=== PATIENT | male | born 1955 | race Caucasian/White ===

== ENCOUNTER → 2020-09-05 09:43 | Outpatient (CLI) | payer MEDICARE, OTHER, SELFPAY ==
--- NOTE | 2020-09-05 09:49 | DI.RAD.S_ITS ---
PROCEDURE: XR LUMBAR SPINE MIN 4V INDICATIONS: Lumbar radiculopathy TECHNIQUE: 5 views of the lumbar spine were acquired, including bilateral oblique views. COMPARISON: None. FINDINGS: Bones: 5 nonrib-bearing vertebrae are present. Minimal 2-3 mm retrolisthesis noted at T12-L1, L1-L2 and-L3. No vertebral body compression fractures. No suspicious bony lesions. Mild to moderate disc space narrowing and anterior osteophytes noted throughout the exam. Hypertrophic facet joints particularly present lower lumbar spine. Orthopedic fixation screw is associated with the left 10th lateral rib Soft tissues: Overlying bowel gas pattern is normal. No suspicious soft tissue calcifications. Moderate fecal debris noted throughout the colon. Oblique images: No pars defects. IMPRESSION: 1. Multilevel degenerative disc disease and arthropathy, particularly in the lower lumbar spine. 2. Moderate fecal debris throughout the colon Dictated by: Benito Stack M.D. on 09/05/2020 at 9:28 Approved by: Benito Stack M.D. on 09/05/2020 at 9:32
== END ==
PROVIDERS: PCP Family Medicine; Referring Provider Physical Medicine & Rehabilitation; Visit Provider Physical Medicine & Rehabilitation
DX: M51.16 Intervertebral disc disorders with radiculopathy, lumbar region (principal); M47.26 Other spondylosis with radiculopathy, lumbar region
CPT/HCPCS: 72110

== ENCOUNTER → 2020-11-19 08:53 | Outpatient (CLI) | payer MEDICARE, OTHER, SELFPAY ==
--- NOTE | 2020-11-19 08:55 | DI.MRI.S_ITS ---
PROCEDURE: MR LUMBAR SPINE WO CON INDICATIONS: Low back pain with right-sided radiculopathy TECHNIQUE: Noncontrast sagittal T1 spin echo and T2 fast echo, sagittal STIR, axial T1 and T2 fast spin echo through the lumbar spine. In cases with scoliosis, additional coronal T2 fast spin echo may be performed. COMPARISON: None. FINDINGS: Image quality: Excellent. Alignment and Curvature: There is normal bony alignment. Bone Marrow: Small vertebral hemangiomas noted scattered throughout the lumbar spine, particularly prominent at L5 measuring 2.2 cm. Degenerative endplate changes noted at L1-2 Spinal Cord: Conus medullaris terminates at the L1 level. Visualized cord demonstrates normal signal and size. Paraspinous Soft Tissues: No paravertebral masses. T12-L1: Normal appearance. L1-L2: Disc space narrowing, circumferential disc bulge and anterior osteophyte results in mild central stenosis. Hypertrophic facet joints result in moderate bilateral foraminal stenosis. L2-L3: Mild disc space narrowing and circumferential disc bulge combined with hypertrophic facet joints to result in effacement of both lateral recesses without significant central stenosis. Severe bilateral foraminal stenosis present. L3-L4: Mild disc space narrowing and circumferential disc bulge combines with hypertrophic facet joints to be result in effacement of both lateral recesses without significant central stenosis. There is severe bilateral foraminal stenosis present. L4-L5: Mild disc space narrowing and circumferential disc bulge combines with hypertrophic facet joints to result in effacement of both lateral recesses. No central stenosis, but severe bilateral foraminal stenosis present. L5-S1: Moderate disc space narrowing and circumferential disc bulge present without central stenosis. There is a high-intensity zone in the posterior annulus reflecting annular fissure or tear. Moderate right and severe left foraminal stenosis present. IMPRESSION: 1. Multilevel degenerative disc disease and arthropathy resulting in predominantly foraminal stenosis including severe bilateral foraminal stenosis at L2-3, L3-4 and L4-5 Approved by: Benito Stack M.D. on 11/19/2020 at 11:29
== END ==
PROVIDERS: PCP Family Medicine; Referring Provider Physical Medicine & Rehabilitation; Visit Provider Physical Medicine & Rehabilitation
DX: M51.16 Intervertebral disc disorders with radiculopathy, lumbar region (principal); M51.17 Intervertebral disc disorders with radiculopathy, lumbosacral region; M47.26 Other spondylosis with radiculopathy, lumbar region; M47.27 Other spondylosis with radiculopathy, lumbosacral region; M48.061 Spinal stenosis, lumbar region without neurogenic claudication; M48.07 Spinal stenosis, lumbosacral region
CPT/HCPCS: 72148

== ENCOUNTER → 2020-11-24 10:01 | Outpatient (CLI) | payer MEDICARE, OTHER, SELFPAY ==
[2020-11-24 12:04] LABS: COVID19 -Nasal RAPID Negative (Negative)
== END ==
PROVIDERS: PCP Family Medicine; Visit Provider Nurse Practitioner Family
DX: Z01.812 Encounter for preprocedural laboratory examination (principal); Z20.822 Contact with and (suspected) exposure to COVID-19
CPT/HCPCS: 87635; C9803

== ENCOUNTER 2020-11-25 10:22 | Outpatient (CLI) | payer MEDICARE, OTHER, SELFPAY ==
[2020-11-25] VITALS (8 sets, daily range): BP systolic 121–151; BP diastolic 71–86; PULSE 42–51; RESP 13–30; TEMP 36.6; O2SAT 97–100
--- NOTE | 2020-11-25 10:28 | DI.RAD.S_ITS ---
PROCEDURE: PAIN L/S TRANSFORAMINAL INJECT INDICATIONS: SPONDYLOSIS COMPARISON: [facility], MR, MR LUMBAR SPINE WO CON, 11/19/2020, 9:26. FINDINGS: Fluoroscopic spot filming was performed to verify placement of a spinal needle at the L3-L4 level, as labeled on the films. Appropriate location of the needle tip was confirmed by injection of iodinated contrast. IMPRESSION: Intraprocedural examination within normal limits. Dictated by: Dionisio Quintana M.D. on 11/25/2020 at 13:46 Approved by: Dionisio Quintana M.D. on 11/25/2020 at 13:47
[2020-11-25] MEDS: MIDAZOLAM 5 MG/5 ML VIAL IV (11:53)
[2020-11-25] MEDS: BETAMETHASONE 30 MG/5 ML MDV 6 MG INJ (11:57)
[2020-11-25] MEDS: BUPIVACAINE 0.25% (PF) VIAL 2 ML INJ (11:57)
[2020-11-25] MEDS: DEXAMETHASONE 10 MG/ML VIAL 20 MG INJ (11:57)
[2020-11-25] MEDS: IOPAMIDOL 15 ML VIAL 3 ML INJ (11:57)
--- NOTE | 2020-11-25 12:05 | P.PCN_ITS ---
Date/Time/Diagnoses Date of procedure: 11/25/20 Time of procedure: 12:05 Pre-procedure diagnosis: 1. FORAMINAL STENOSIS WITH LE SYMPTOMS Post-procedure diagnosis: same Procedure Notes Procedure: 1. FLUOROSCOPICALLY GUIDED CONTRAST CONTROLLED TRANSFORAMINAL EPIDURAL STEROID INJECTION - RIGHT L3/4 TFESI Indications: Carter is referred by Dr. Mccrary for treatment of Foraminal Stenosis with right LE Symptoms Physician: Yury Shields Total Fluoroscopy time (seconds): 4 Total sedation minutes: 8 Complications: none Procedure in detail & Post-procedure care: FINDINGS Foraminal Nerve Root Compression secondary to disc disease and facet hypertrophy DESCRIPTION OF PROCEDURE Following review of allergy and review of potential side effects and complications, including, but not necessarily limited to, infection, allergic reaction, local tissue breakdown, stroke, temporary or permanent nerve injury, paralysis, and possible , the patient indicated that the patient understood and agreed to proceed. An informed consent document was signed by the patient, witnessed by a nurse, and placed in the patient's chart. Additionally, other treatment options including medications, modalities, and physical therapy were reviewed with the patient. After review of previous anaesthesic history and IV conscious sedation the patient was deemed safe to proceed with today?s procedure with IV conscious sedation as ASA class II designation. Safety time-out was performed to confirm patient ID, procedure to be performed and site of procedure. IV sedation was accomplished with a combination of 2mg of Versed was administered by the RN after DO order, titrated to patient comfort during the course of the procedure while the patient remained responsive to all verbal commands In the prone position following sterile prep and drape of the lumbar region, the right L3/4 posterior neuroforamen was identified fluoroscopically. The skin was anesthetized via a 25-gauge 1.5-inch needle with 1% lidocaine solution. At this point, a 25-gauge 3.5-inch spinal needle was atraumatically introduced and advanced under fluoroscopic guidance through the posterior right L3/4 neuroforamen to approximately the anterior aspect of the canal. Depth was confirmed on lateral view. Following negative aspiration, injection of approximately 1.5 cc of Isovue 200 under live fluoroscopy in the AP view confirm ed excellent flow along the nerve root, into the epidural space without vascular or intrathecal uptake observed Radiological data, including multiple fluoroscopic views of the lumbosacral spine, reveal a spinal needle at the right L3/4 posterior neuroforamen. Subsequent views show flow of contrast material flowing superiorly and inferiorly along the nerve root confirming epidural flow. Subsequently, a test dose of 1.5 cc of 1% lidocaine solution was administered and patient was observed for two minutes for signs or symptoms of complications, including abdominal pain, shortness of breath, bilateral upper or lower extremity weakness, nausea and vomiting, prior to steroid injection. At this point, a total of 3cc or 20mg of dexamethasone and 6mg of betamethasone was injected without incident. The patient tolerated the procedure well without signs or symptoms of complications prior to transfer to the recovery area continued monitoring without incident. The patient was then transferred to the recovery area where they were observed for an appropriate time after the injection. The patient reported a VAS score of 7 prior to the procedure and a post-procedure VAS of 0. POST OP INSTRUCTIONS The patient was provided a Pain Log to continue to record their response to the target-specific procedure prior to follow-up visit with their referring physic mary jane. Additionally, specific post-injection care instructions and a contact number to our office were provided if concerns arise regarding possible complications associated with the procedure are suspected.
== END 2020-11-25 12:27 | disposition home or self-care (01) ==
LOC: RAD 10:28
PROVIDERS: PCP Family Medicine; Referring Provider Physical Medicine & Rehabilitation; Visit Provider Physical Medicine & Rehabilitation
DX: M48.061 Spinal stenosis, lumbar region without neurogenic claudication (principal); M51.16 Intervertebral disc disorders with radiculopathy, lumbar region
CPT/HCPCS: 64483; J0702; J1100; J2250; J3010

== ENCOUNTER → 2021-03-31 10:23 | Outpatient (CLI) | payer MEDICARE, OTHER, SELFPAY ==
[2021-03-31 11:51] LABS: COVID19 -Nasal RAPID Negative (Negative)
== END ==
PROVIDERS: PCP Family Medicine; Referring Provider Physical Medicine & Rehabilitation; Visit Provider Physical Medicine & Rehabilitation
DX: Z20.822 Contact with and (suspected) exposure to COVID-19 (principal)
CPT/HCPCS: 87635; C9803

== ENCOUNTER 2021-04-02 15:10 | Outpatient (CLI) | payer MEDICARE, OTHER, SELFPAY ==
[2021-04-02] VITALS (8 sets, daily range): BP systolic 123–158; BP diastolic 74–98; PULSE 53–67; RESP 16–25; TEMP 36.8; O2SAT 95–100
--- NOTE | 2021-04-02 15:12 | DI.RAD.S_ITS ---
PROCEDURE: PAIN L INTERLAMINAR/CAUDAL INJ INDICATIONS: SPONDYLOSIS COMPARISON: None. FINDINGS: Fluoroscopic spot filming was performed to verify placement of spinal needles at the lower lobe level(s), as labeled on the films. Appropriate location(s) of the needle tip(s) was confirmed by injection of iodinated contrast. IMPRESSION: Needle placement as above. Dictated by: Wilman Mckeon M.D. on 04/02/2021 at 16:15 Approved by: Wilman Mckeon M.D. on 04/02/2021 at 16:30
[2021-04-02] MEDS: MIDAZOLAM 5 MG/5 ML VIAL IV (15:43)
[2021-04-02] MEDS: fentaNYL 100 MCG/2 ML INJ 50 MCG IV (15:43)
[2021-04-02] MEDS: BUPIVACAINE 0.25% (PF) VIAL 2 ML INJ (15:48)
[2021-04-02] MEDS: IOPAMIDOL 15 ML VIAL 3 ML INJ (15:48)
[2021-04-02] MEDS: BETAMETHASONE 30 MG/5 ML MDV 6 MG INJ (15:49)
[2021-04-02] MEDS: DEXAMETHASONE 10 MG/ML VIAL 20 MG INJ (15:49)
--- NOTE | 2021-04-02 15:56 | P.PCN_ITS ---
Date/Time/Diagnoses Date of procedure: 04/02/21 Time of procedure: 15:56 Pre-procedure diagnosis: 1. HNP WITH RADICULAR FEATURES, 2. MULTILEVEL CENTRAL STENOSIS, Post-procedure diagnosis: same Procedure Notes Procedure: 1. FLUOROSCOPICALLY GUIDED CONTRAST CONTROLLED INTERLAMINAR EPIDURAL STEROID INJECTION -L4/5 Indications: Carter is referred by Dr. Mccrary for treatment of Bilateral Foraminal Stenosis R>L LE symptoms. Physician: Yury Shields Total Fluoroscopy time (seconds): 6 Total sedation minutes: 8 Complications: none Procedure in detail & Post-procedure care: FINDINGS Multilevel Central Spinal Stenosis with Nerve Root Compression DESCRIPTION OF PROCEDURE Fluoroscopically guided, contrast-controlled L4/5 translaminar epidural steroid injection. Following review of allergy and review of potential side effects and complications, including, but not necessarily limited to, infection, allergic reaction, local tissue breakdown, temporary as well as permanent nerve injury, paralysis, stroke and possible , the patient indicated that the patient understood and agreed to proceed. An informed consent document was signed by the patient, witnessed by a nurse, and placed in the patient's chart. Additionally, other treatment options including modalities, medications, and physical therapy were reviewed with the patient. After review of previous anaesthesic history and IV conscious sedation the patient was deemed safe to proceed with today?s procedure with IV conscious sedation as ASA class II designation. Safety time-out was performed to confirm patient ID, procedure to be performed and site of procedure. IV sedation was accomplished with a combination of 2mg of Versed and 50mcg of Fentanyl was administered by the RN after DO order, titrated to patient comfort during the course of the procedure while the patient remained responsive to all verbal commands In the prone position, following sterile prep and drape of the lumbar region, the L4/5 translaminar space was identified fluoroscopically. The skin was anesthetized via a 25-gauge, 1.5inch needle with 1% lidocaine solution. At this point, a 22-gauge short bevel spinal needle was atraumatically introduced and advanced under fluoroscopic guidance into the region of the L4/5 translaminar space. Depth was confirmed on lateral view. Radiological data, including multiple fluoroscopic views of the lumbar spine, reveal a spinal needle at the L4/5 translaminar space. Lateral views then show placement of the needle in the epidural space. Subsequent views show contrast material flowing superiorly and inferiorly in the epidural space. No vascular or intrathecal uptake is observed. At this point, using loss of resistance technique with saline and air, the epidural space was entered. This was confirmed following negative aspiration with injection of approximately 1.5cc of Isovue 200, showing excellent epidural flow without vascular or intrathecal uptake. At this point, 1cc of 1% lidocaine solution combined with 3cc or 20mg of dexamethasone and 6mg betamethasone was injected without incident. The patient tolerated the procedure well without signs or symptoms of complic ations prior to transfer to the recovery area continued monitoring without incident. The patient was then transferred to the recovery area where they were observed for an appropriate period of time after the injection. The patient reported a VAS score of 6 prior to the procedure and a post- procedure VAS of 0. POST OP INSTRUCTIONS The patient was provided a Pain Log to continue to record their response to the target-specific procedure prior to follow-up visit with their referring physician. Additionally, specific post-injection care instructions and a contact number to our office were provided if concerns arise regarding possible complications associated with the procedure are suspected.
== END 2021-04-02 16:15 | disposition home or self-care (01) ==
PROVIDERS: PCP Family Medicine; Referring Provider Physical Medicine & Rehabilitation; Visit Provider Physical Medicine & Rehabilitation
DX: M51.16 Intervertebral disc disorders with radiculopathy, lumbar region (principal); M48.061 Spinal stenosis, lumbar region without neurogenic claudication
CPT/HCPCS: 62323; J0702; J1100; J2250; J3010

== ENCOUNTER → 2024-02-14 13:39 | Outpatient (CLI) | payer MEDICARE, OTHER, SELFPAY ==
--- NOTE | 2024-02-14 13:42 | DI.ECHO.S_ITS ---
[facility] : : [address] : : [place] : : [id number] : : Phone: [phone] Echocardiogram Report + + :Name: KRISTEN ERWIN Study Date: 02/14/2024 Height: 72 in : :[facility] ReadingLocation: Weight: 181 lb : : Gender: Male BSA: 2.0 m2 : :: 1955 Age: 68 yrs BP: 153/95 mmHg: :Reason For Study: TACHYCARDIA INDUCED CARDIOMYOPATHY : :Ordering Physician: CHIDI SHOEMAKER Performed By: Nicole Ferrera : :Referring: CHIDI SHOEMAKER : + + Interpretation Summary 1. Borderline LV contractility. EF of 50-55%. No WMA. No LVH. Normal diastolic function. 2. Normal RV contractility. 3. ROM. Mild RVE 4. Mild MR/PI. 5. No obvious intracardiac shunts. 6. No obvious intracardiac masses/thrombi. 7. No hemodynamically significant pericardial effusion present. 8. Low right sided filling pressures. Conclusion: Low normal LV systolic function with mild valvular insufficiencies. Procedure: A two-dimensional transthoracic echocardiogram with color flow and Doppler was performed. The study quality was technically adequate. There is no prior echocardiogram noted for this patient. The patient was in sinus bradycardia with heart rates between 43-58 bpm during the exam. Left Ventricle: The left ventricle is normal in size and wall thickness. The ejection fraction is estimated to be 50-55%. Right Ventricle: The right ventricle is mildly dilated. The right ventricular systolic function is normal. Atria: The left atrium is moderately dilated. The right atrium is moderately dilated. There is no Doppler evidence for an interatrial shunt. Mitral Valve: The mitral valve is normal in structure and function. There is mild mitral regurgitation. Aortic Valve: The aortic valve is trileaflet. The aortic valve opens well. There is no aortic valve stenosis. No aortic regurgitation is present. Tricuspid Valve: The tricuspid valve is normal in structure and function. There is trace tricuspid regurgitation. The right ventricular systolic pressure is estimated to be at least 22 mmHg based on an estimated right atrial pressure of 3 mm Hg. Pulmonic Valve: The pulmonic valve leaflets are thin and pliable; valve motion is normal. There is mild pulmonic regurgitation. Great Vessels: The aortic root is normal size. The dimensions of the ascending aorta are normal. The IVC is of normal diameter and collapses greater than 50% with a sniff. This suggests a low right atrial pressure of 3 mm Hg. Pericardium/ Pleura There is no pericardial effusion. There is no pleural effusion. MMode/2D Measurements & Calculations LVIDd: 5.9 cm LVOT diam: 2.3 cm LVIDs: 3.7 cm Ao root diam: 3.8 cm FS: 36.6 % asc Aorta Diam: 3.3 cm EPSS: 0.64 cm Ao Arch Diam (Prox Trans): 3.0 cm IVSd: 0.83 cm LVPWd: 0.78 cm LV amador. diameter/BSA (cm/m^2): 2.9 LV sys. diameter/BSA (cm/m^2): 1.8 LA A2 area: 25.6 cm2 RA long axis: 5.8 cm LA A4 area: 26.3 cm2 RA area: 25.3 cm2 LA length (vol): 6.2 cm RA vol: 94.2 ml LA vol: 92.2 ml RA : 46.1 ml/m2 LA vol index: 45.2 ml/m2 IVC diam: 2.0 cm RVD1 (basal): 4.5 cm RVD2 (mid): 3.4 cm TAPSE: 2.4 cm Doppler Measurements & Calculations Ao V2 max: 113.8 cm/sec LVOT Max Ortega: 82.8 cm/sec Ao V2 mean: 77.4 cm/sec LV V1 max P.7 mmHg Ao max P.2 mmHg LV V1 VTI: 20.7 cm Ao mean P.7 mmHg GEORGINA(I,D): 3.2 cm2 Ao V2 VTI: 26.8 cm GEORGINA(V,D): 3.1 cm2 sev ratio: 0.77 GEORGINA indexed to BSA (cm^2/m^2): 1.6 MV E max ortega: 47.2 cm/sec TR max ortega: 218.2 cm/sec MV A max ortega: 52.6 cm/sec TR max P.0 mmHg MV E/A: 0.90 PA V2 max: 91.6 cm/sec Med Peak E' Ortega: 7.5 cm/sec PA V2 mean: 69.3 cm/sec E/E' med: 6.3 PA mean P.1 mmHg Lat Peak E' Ortega: 12.0 cm/sec PA pr(Accel): 7.1 mmHg E/E' lat: 3.9 E/e' average: 5.1 MV dec time: 0.24 sec SV(LVOT): 87.0 ml Reading Physician:
--- NOTE | 2024-02-14 13:43 | DI.NM.S_ITS ---
PROCEDURE: NM EXERCISE TREADMILL NON NUC COMPARISON: None INDICATIONS: TACHYCARDIA INDUCED CARDIOMOPATHY,AFIB FLUTTER FINDINGS: Rest ECG sinus bradycardia 49 bpm. Kalpesh protocol 9:07, maximum heart rate 108 bpm (72% peak predicted), peak blood pressure 180/90, 10.1 METS, TATUM -27%. Exercise ECG sinus tachycardia, no ST segment changes or arrhythmia. The patient did not complain of exercise-induced chest pain however was noted to have severe dyspnea. IMPRESSION: Study uninterpretable for ischemia due to inability to achieve target heart rate (patient took diltiazem the night before and amiodarone the morning of the test) and chronotropic competence. Normal blood pressure response. Good exercise capacity. Dictated by: Bridget Riggs D.O. on 02/14/2024 at 17:14 Approved by: Bridget Riggs D.O. on 02/14/2024 at 17:19
== END ==
LOC: ECHO 13:42
PROVIDERS: PCP Nurse Practitioner Family; Referring Provider Internal Medicine; Visit Provider Internal Medicine
DX: I34.0 Nonrheumatic mitral (valve) insufficiency (principal); I37.1 Nonrheumatic pulmonary valve insufficiency; I48.3 Typical atrial flutter; I43 Cardiomyopathy in diseases classified elsewhere; R00.0 Tachycardia, unspecified
CPT/HCPCS: 93017; 93306

== ENCOUNTER → 2024-04-30 09:50 | Outpatient (CLI) | payer MEDICARE, OTHER, SELFPAY ==
[2024-04-30 11:06] LABS: Add Manual Diff / Slide Review NO; Basophils Absolute Auto 0 /uL (0-100); Basophils Percent Auto 0.4 % (0-2); Eosinophils Absolute Auto 0 /uL (0-450); Eosinophils Percent Auto 0.9 % (2-4); Hematocrit 45.3 % (41-53); Hemoglobin 15.1 g/dL (13.5-17.5); Lymphocytes Absolute Auto 900 /uL (1100-4500); Lymphocytes Percent Auto 16.7 % (25-40); Mean Corpuscular HGB Conc 33.4 % (30-36); Mean Corpuscular Hemoglobin 30.3 PG (26-34); Mean Corpuscular Volume 90.7 fL (80-100); Monocytes Absolute Auto 500 /uL (0-900); Monocytes Percent Auto 9.4 % (3-14); Neutrophils Absolute Auto 3900 /uL (1500-7000); Neutrophils Percent Auto 72.6 % (50-75); Platelet Count 225 X10^3/uL (150-400); Red Blood Cell Count 4.99 X10^6/uL (4.5-5.9); Red Cell Distribution Width 14.8 % (11.6-14.8); White Blood Cell Count 5.3 X10^3/uL (4.5-11.0)
[2024-04-30 11:12] LABS: BUN Creatinine Ratio 19.1 (6-22); Blood Urea Nitrogen 22 mg/dL (9-20); Calcium 8.9 mg/dL (8.4-10.2); Carbon Dioxide 27 mmol/L (22-32); Chloride 104 mmol/L (98-107); Estimated Glomerular Filt Rate > 60 mL/min (>60); Glucose 97 mg/dL (80-110); HEMOLYSIS < 15 (0-50); Potassium 4.8 mmol/L (3.4-5.1); Sodium 137 mmol/L (137-145)
== END ==
PROVIDERS: PCP Nurse Practitioner Family; Referring Provider Internal Medicine; Visit Provider Internal Medicine
DX: I48.91 Unspecified atrial fibrillation (principal)
CPT/HCPCS: 36415; 80048; 85025